=== PATIENT | female | born 1950 | race Caucasian/White ===

== ENCOUNTER → 2016-11-07 | Outpatient (CLI) | payer MEDICARE, OTHER ==
--- NOTE | 2016-11-07 15:36 | RADRPT ---
PROCEDURE: XR pelvis/right hip. CLINICAL INDICATION: Hip pain TECHNIQUE: AP pelvis/AP and lateral right hip views performed COMPARISON: No prior studies are available for comparison. FINDINGS: There is severe right hip osteoarthrosis and moderate left hip osteoarthrosis. This is associated wi th joint space narrowing, subchondral sclerosis , subchondral cyst formation and osteophytosis. The re is normal mineralization. No fractures or osseous lesions are identified. The soft tissues are unremarkable. IMPRESSION: Severe right hip osteoarthrosis. Moderate left hip osteoarthrosis RPTAT: [facility] .Edmund Hoang MD, Date Time Electronically viewed and signed by .Edmund Hoang MD, on 11/07/2016 15:36 .B/
== END | disposition home or self-care (01) ==
LOC: HKI 08:47
PROVIDERS: ATTEND Orthopaedic Surgery
DX: M25.551 Pain in right hip (principal); M16.11 Unilateral primary osteoarthritis, right hip
CPT/HCPCS: 73502; G0463